=== PATIENT | female | born 1975 | race Caucasian/White ===

== ENCOUNTER 2024-04-14 10:43 | Outpatient (OUT) | payer OTHER, SELFPAY ==
--- NOTE | 2024-04-14 11:15 | XR_ITS ---
The [address] [address] Patient Name: ALAN GUILLORY MRN: [id number] date: 1975 Sex: F Assigned Patient Location: [facility] Current Patient Location: Accession/Order Number: [id number] Exam Date: 04/14/2024 11:00 Report Date: 04/15/2024 08:15 At the request of: MARIO RICHARDSON Procedure: XR lumbar spine min 4V EXAMINATION: XR lumbar spine min 4V HISTORY: Low Back Pain Unspecified COMPARISON: No relevant comparison available. FINDINGS: BONES: 8 mm anterolisthesis of L5 on S1 with bilateral L5 pars fractures. Mild spondylosis, moderate facet osteoarthropathy DISC SPACES: Disc collapse with endplate sclerosis L5-S1 PARASPINOUS: Negative. No paraspinous abnormality is seen. OTHER: Negative. XR/XR lumbar spine min 4V IMPRESSION: Degenerative changes L5-S1 with 8 millimeter anterolisthesis Electronically authenticated by: AUREA ASIF Date: 04/15/2024 08:15
== END 2024-04-14 10:44 | disposition home or self-care (01) ==
LOC: RAD 10:43
PROVIDERS: Family Provider Family Medicine; PCP Family Medicine; Visit Provider Family Medicine
DX: M54.50 Low back pain, unspecified (principal); M51.369 Other intervertebral disc degeneration, lumbar region without mention of lumbar back pain or lower extremity pain
CPT/HCPCS: 72110